=== PATIENT | female | born 1975 | race Caucasian/White ===

== ENCOUNTER 2022-11-04 12:00 | Emergency (ER) | payer BC, SELFPAY ==
[2022-11-04 12:00] VITALS: BP 145/92; PULSE 77; RESP 18; TEMP 35.8; O2SAT 100; BMI 24.3
--- NOTE | 2022-11-04 13:39 | EX.ED.UPPERE ---
HPI History of Present Illness Chief Complaint: Laceration Informant: patient Narrative Narrative: Patient is a 47-year-old female no significant medical history presenting with laceration to her right index finger. Patient was using a mandolin to cut celery. She actually cut the tip of her index finger. She applied pressure and came to the ER for further evaluation. States injury occurred around 11:00. She is not sure if the bleeding had stopped by the time she came here. Is unsure when her last tetanus was and would like it to be updated. No other complaints or concerns at this time. Some mild paresthesias at the tip of her finger but no other injuries reported. Tetanus Immunization: Unknown PFSH PFSH Allergy/AdvReac Type Severity Reaction Status Date / Time No Known Allergies Allergy Verified 11/04/22 12:03 Social History Smoking Status: Never smoker ROS ROS ED Constitutional Constitutional ED: Denies chills or fever(s) Musculoskeletal Musculoskeletal: Reports other Details: right finger pain Integumentary Reports Abrasions Neurologic Neurologic: Reports paresthesias Hematologic/Lymphatic Hematologic/Lymphatic: Denies easy bleeding or easy bruising EXAM Physical Exam Const Vital Signs: 11/04/22 12:00 Temperature 96.5 F L Temperature Source Temporal Pulse Rate 77 Respiratory Rate 18 Blood Pressure 145/92 H Blood Pressure Mean 109 Pulse Ox 100 Oxygen Delivery Method Room Air Positive well nourished and well developed General Appearance ED: well developed and NAD HEENT Reports moist mucous membranes Chest Wall inspection of chest normal Resp normal respiratory effort Cardio regular rate Extremity Extremity Narrative: No deformity. Normal range of motion of the fingers. Neuro oriented x3 Sensorium / Orientation: alert Motor Exam: Negative for general weakness Psych mental status grossly normal Skin Skin Narrative: 1 cm avulsion injury to the tip of the right index finger. No involvement of the nail. No active bleeding at this time. MDM MDM MDM Narrative Medical decision making narrative: Patient valuate for avulsion injury to the right index finger. No active bleeding. I will cleanse and apply Dermabond. Tetanus is updated. Counseled generalized wound care. Patient verbalized agreement understand this plan. The wound is relatively superficial and I do not think it requires imaging at this time. Area was irrigated and soaked with saline/Hibiclens. Dermabond then applied to the top of it. No further bleeding. Tolerated this well. Discharged home. Given wound care and return precautions. Discharge Plan Triage Chief Complaint: Laceration ED Provider: Yolette Mi Dx/Rx/DC Orders Clinical Impression: Avulsion of finger tip Instructions: ED Laceration, Extremity: Skin Glue, ED Skin Avulsion Primary Care Provider: Care Physician,No Primary Referrals: Care Physician,No Primary [Primary Care Provider] - Activity Restrictions/Additional Instructions: Try to keep clean and dry. Alternate ibuprofen and Tylenol as needed for pain. The glue will fall off on its own. Do not apply bacitracin or other topical antibiotic ointment on top of the glue as it will dissolve prematurely. Disposition Disposition: Home, Self Care Discharge Date/Time: 11/04/22 14:01
[2022-11-04] MEDS: Diphth,Pertuss(Acell),Tet Vac 0.5 ML Vial IM (13:47)
== END 2022-11-04 14:01 | disposition home or self-care (01) ==
PROVIDERS: Emergency Provider Emergency Medicine; Visit Provider Emergency Medicine
DX: S61.210A Laceration without foreign body of right index finger without damage to nail, initial encounter (principal); W26.8XXA Contact with other sharp object(s), not elsewhere classified, initial encounter; Y93.G3 Activity, cooking and baking; Z23 Encounter for immunization
CPT/HCPCS: 12001; 99282